=== PATIENT | male | born 2005 | race Two or more races ===

== ENCOUNTER 2023-07-03 14:30 | Emergency (ER) | payer BC, OTHER ==
[~2023-07-03] VITALS: Ht 182.9 cm; Wt 64.2 kg
[2023-07-03 14:44] VITALS: BP 115/68; PULSE 60; RESP 16; O2SAT 100
[2023-07-03] MEDS ORDERED: HYDROcodone-ACET 5/325MG TAB PO ONE (17:45)
[2023-07-03] MEDS ORDERED: cefTRIAXone SOD 1,000 MG VL IM ONE (17:45)
[2023-07-03] MEDS ORDERED: IBUP1TAB5 PO (17:52)
[2023-07-03] MEDS ORDERED: CEPH500C PO (17:52)
[2023-07-03] MEDS ORDERED: MUPI2OIN2 EX (17:52)
== END 2023-07-03 18:09 | disposition home or self-care (01) ==
LOC: ER 14:30
DX: S06.0XAA Concussion with loss of consciousness status unknown, initial encounter (principal); S02.5XXA Fracture of tooth (traumatic), initial encounter for closed fracture; S01.511A Laceration without foreign body of lip, initial encounter; Y04.2XXA Assault by strike against or bumped into by another person, initial encounter; Y93.89 Activity, other specified; Y92.89 Other specified places as the place of occurrence of the external cause; Y99.8 Other external cause status
CPT/HCPCS: 70450; 70486; 96372; 99285; J0696